=== PATIENT | male | born 1995 ===

== ENCOUNTER 2018-08-07 08:31 | Emergency (ER) | payer OTHER ==
[~2018-08-07] VITALS: Ht 175.3 cm; Wt 68.0 kg
[2018-08-07] MEDS ORDERED: DEPEN250 MG PO (09:00)
== END 2018-08-07 10:38 | disposition home or self-care (01) ==
LOC: ER 08:31
DX: J09.X2 Influenza due to identified novel influenza A virus with other respiratory manifestations (principal); F50.9 Eating disorder, unspecified